=== PATIENT | female | born 1975 | race Caucasian/White ===

== ENCOUNTER 2019-05-25 18:07 | Emergency (ER) | payer SELFPAY ==
[~2019-05-25] VITALS: Ht 152.4 cm; Wt 87.0 kg
[2019-05-25 21:15] LABS: CLARITY URINE CLEAR (CLEAR); COLOR URINE YELLOW (YELLOW); KETONES URINE NEGATIVE (NEGATIVE); LEUKOCYTE ESTERASE URINE NEGATIVE (NEGATIVE); NITRITE URINE NEGATIVE (NEGATIVE); OCCULT BLOOD URINE NEGATIVE (NEGATIVE); PROTEIN URINE NEGATIVE (NEGATIVE); SPECIFIC GRAVITY URINE 1.003 (1.005-1.030); UROBILINOGEN URINE 0.2 E.U./dL (0.2-1.0)
[2019-05-25 22:29] VITALS: BP 151/74
== END 2019-05-25 22:34 | disposition home or self-care (01) ==
LOC: ER 18:07
DX: F41.9 Anxiety disorder, unspecified (principal); R45.851 Suicidal ideations; F32.9 Major depressive disorder, single episode, unspecified
CPT/HCPCS: 81003; 81025; 99283